=== PATIENT | female | born 1940 | race Caucasian/White ===

== ENCOUNTER 2017-09-13 11:20 | Emergency (ER) | payer OTHER, BC ==
[~2017-09-13] VITALS: Ht 172.7 cm; Wt 72.6 kg
--- NOTE | ~2017-09-13 | EKG ---
[place] [address] [facility] [place] [address] ELECTROCARDIOGRAM REPORT Name: AMRITA GORMANJORIBubba BEARD Room #: DEP 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
[~2017-09-13 11:20] MED LIST: AMBEREN PO; COD LIVER OIL; COQ-10100 MG PO; LEVAQUIN 500 M500 M4 PO; LIALDA1.2 GM PO; MULTI VITAMIN1 EACH PO; NEXIUM40 MG PO; NORCO 5-325 TA1 EACH PO; PAIN & FEVER500 MG PO; PENTASA 250 MG250 MG PO; PERCOCET 5-3251 EACH PO; PREDNISONE 5 MG5 M1 PO; VITAMIN E; VITAMIN E400 UNIT PO; ZINC GLUCONATE PO; ZINC10 MG; ZOFRAN ODT4 MG PO
[2017-09-13 12:11] LABS: HEMATOCRIT 33.2 % (37.0-47.0); HEMOGLOBIN 10.8 gm/dL (12.0-15.0); MCH 24.7 pg (26.0-34.0); MCHC 32.6 g/dL (28.0-37.0); MCV 75.6 fL (80.0-100.0); PLATELET COUNT 281 thou/uL (150-400); RDW 16.8 % (10.5-14.5); WBC 7.2 thou/uL (4.0-11.0)
[2017-09-13 12:22] LABS: ANION GAP 4 mmol/L (7-16); BUN 10 mg/dL (7-18); CALCIUM 8.6 mg/dL (8.5-10.1); CHLORIDE 105 mmol/L (98-107); CO2 29 mmol/L (21-32); CREATININE 0.9 mg/dL (0.6-1.0); GLUCOSE 114 mg/dL (74-106); SODIUM 138 mmol/L (136-145)
[2017-09-13 12:31] LABS: ALBUMIN 3.5 g/dL (3.4-5.0); SGOT 12 U/L (15-37); SGPT 18 U/L (30-65); TOTAL BILIRUBIN 0.6 mg/dL (<0.1-1.0); TOTAL PROTEIN 7.6 g/dL (6.4-8.2); TROPONIN-I <0.06 ng/mL (<0.06)
[2017-09-13 12:39] LABS: ANISOCYTOSIS 1+
[2017-09-13 14:04] LABS: URINE BILIRUBIN NEGATIVE (Negative); URINE BLOOD NEGATIVE (Negative); URINE CLARITY CLEAR; URINE COLOR YELLOW; URINE GLUCOSE-RANDOM* NEGATIVE (Negative); URINE KETONES NEGATIVE (Negative); URINE LEUKOCYTES-REFLEX NEGATIVE (Negative); URINE NITRITE-REFLEX NEGATIVE (Negative); URINE PROTEIN (DIPSTICK) NEGATIVE (Negative); URINE SPECIFIC GRAVITY <= 1.005 (1.005-1.035); URINE UROBILINOGEN 0.2 E.U./dl (0.2-1.0)
[2017-09-13] MEDS ORDERED: LIORESAL 10 MG10 MG PO (14:24)
== END 2017-09-13 15:10 | disposition home or self-care (01) ==
LOC: ER 11:20
PROVIDERS: Physician Assistant
DX: S29.012A Strain of muscle and tendon of back wall of thorax, initial encounter (principal); Z87.442 Personal history of urinary calculi; Z88.2 Allergy status to sulfonamides; X58.XXXA Exposure to other specified factors, initial encounter; Y92.89 Other specified places as the place of occurrence of the external cause; Y93.89 Activity, other specified; Y99.8 Other external cause status

== ENCOUNTER → 2017-10-06 | Outpatient (CLI) | payer OTHER, BC ==
[~2017-10-06] VITALS: Ht 172.7 cm; Wt 72.1 kg
[~2017-10-06] MED LIST changes: +LIORESAL 10 MG10 MG PO; +LISINOPRIL5 MG PO; +OMEPRAZOLE 20 M20 M1 PO; +ZOCOR20 MG PO
[2017-10-06 14:23] VITALS: BP 144/91
[2017-10-06 16:20] LABS: ABSOLUTE NEUTROPHILS 7.8 thou/uL (1.4-8.2); BASOPHILS 0.6 % (0.0-2.0); EOSINOPHILS 0.3 % (0.0-3.0); HEMATOCRIT 34.6 % (37.0-47.0); HEMOGLOBIN 11.1 gm/dL (12.0-15.0); LYMPHOCYTES 7.9 % (24.0-44.0); MCH 24.1 pg (26.0-34.0); MCHC 32.2 g/dL (28.0-37.0); MCV 74.8 fL (80.0-100.0); MONOCYTES 5.9 % (1.0-8.0); PLATELET COUNT 285 thou/uL (150-400); POLYS 85.3 % (36.0-66.0); RBC 4.63 mil/uL (4.20-5.00); RDW 16.9 % (10.5-14.5); WBC 9.2 thou/uL (4.0-11.0)
[2017-10-06 16:35] LABS: ALBUMIN 3.9 g/dL (3.4-5.0); ANION GAP 8 mmol/L (7-16); BUN 15 mg/dL (7-18); CALCIUM 8.8 mg/dL (8.5-10.1); CHLORIDE 106 mmol/L (98-107); CHOLESTEROL 221 mg/dL (<200); CO2 24 mmol/L (21-32); CREATININE 0.9 mg/dL (0.6-1.0); GLUCOSE 111 mg/dL (74-106); HDL CHOLESTEROL 42 mg/dL (>40); LDL CHOLESTEROL 118 mg/dL (<100); MAGNESIUM 2.3 mg/dL (1.8-2.4); POTASSIUM 4.7 mmol/L (3.5-5.1); SGOT 13 U/L (15-37); SGPT 21 U/L (30-65); SODIUM 138 mmol/L (136-145); TC:HDL 5.3 Ratio (Not establshd); TOTAL BILIRUBIN 0.5 mg/dL (<0.1-1.0); TOTAL PROTEIN 7.8 g/dL (6.4-8.2); TRIGLYCERIDE 305 mg/dL (<150); VLDL 61 mg/dL (<40)
[2017-10-06 16:36] LABS: SERUM ASSESSMENT Clear
[2017-10-06 17:05] LABS: TSH 1.126 uIU/mL (0.358-3.740)
[2017-10-07 04:07] LABS: GLYCOHEMOGLOBIN (HGB A1C) 5.6 % (4.8-5.6)
== END ==
LOC: SEN 14:03
PROVIDERS: Nurse Practitioner Family
DX: Z09 Encounter for follow-up examination after completed treatment for conditions other than malignant neoplasm (principal); K51.90 Ulcerative colitis, unspecified, without complications; K21.9 Gastro-esophageal reflux disease without esophagitis; H91.92 Unspecified hearing loss, left ear; R79.89 Other specified abnormal findings of blood chemistry; I10 Essential (primary) hypertension; D50.9 Iron deficiency anemia, unspecified; E78.5 Hyperlipidemia, unspecified

== ENCOUNTER → 2017-11-19 | Outpatient (CLI) | payer OTHER, BC ==
[2017-11-19 13:52] VITALS: BP 141/87
== END ==
LOC: SEN 08:12
DX: Z09 Encounter for follow-up examination after completed treatment for conditions other than malignant neoplasm (principal); M79.89 Other specified soft tissue disorders

== ENCOUNTER → 2017-12-21 | Outpatient (CLI) | payer OTHER, BC ==
[~2017-12-21] MED LIST changes: +VOLTAREN GEL 1100 G2 TOP
[2017-12-21 15:20] VITALS: BP 126/74
== END ==
LOC: SEN 12-17 14:54
DX: M54.6 Pain in thoracic spine (principal); K51.90 Ulcerative colitis, unspecified, without complications; Z79.899 Other long term (current) drug therapy

== ENCOUNTER 2018-07-20 16:05 | Emergency (ER) | payer OTHER, BC ==
[~2018-07-20] VITALS: Ht 172.7 cm; Wt 72.6 kg
[2018-07-20 16:23] LABS: HEMATOCRIT 28.1 % (37.0-47.0); HEMOGLOBIN 8.6 gm/dL (12.0-15.0); MCH 19.4 pg (26.0-34.0); MCHC 30.6 g/dL (28.0-37.0); MCV 63.6 fL (80.0-100.0); PLATELET COUNT 388 thou/uL (150-400); RBC 4.42 mil/uL (4.20-5.00); RDW 19.2 % (10.5-14.5); WBC 12.2 thou/uL (4.0-11.0)
[2018-07-20 16:30] LABS: ANION GAP 10 mmol/L (7-16); BUN 19 mg/dL (7-18); CALCIUM 8.4 mg/dL (8.5-10.1); CHLORIDE 106 mmol/L (98-107); CO2 25 mmol/L (21-32); CREATININE 1.1 mg/dL (0.6-1.0); GLUCOSE 181 mg/dL (74-106); POTASSIUM 3.7 mmol/L (3.5-5.1); SODIUM 141 mmol/L (136-145)
[2018-07-20 16:39] LABS: TROPONIN-I <0.06 ng/mL (<0.06)
[2018-07-20 16:49] LABS: ABSOLUTE NEUTROPHILS 10.4 thou/uL (1.4-8.2); ATYPICAL LYMPHS 1 %; MICROCYTES 2+
[2018-07-20 16:50] LABS: ANISOCYTOSIS 2+; HYPOCHROMASIA 1+
[2018-07-20 16:51] LABS: OVALOCYTES FEW; POLYCHROMASIA OCCASIONAL; SCHISTOCYTES RARE
[2018-07-20 18:12] VITALS: BP 123/85
--- NOTE | 2018-07-21 16:09 | EKG ---
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 : 1940 Requested By: Chidi Garza Order Number: [id number] MD: Kyle Ramírez Measurements Intervals [place] Rate: 78 P: ID: QRS: 14 QRSD: 80 T: 74 QT: 382 QTc: 436 Interpretive Statements Sinus rhythm, multiple APCs Nonspecific ST segment abnormalities Compared to ECG 09/13/2017 11:26:02 No significant change Electronically Signed On 07-21-2018 16:09:48 CDT by Kyle Ramírez [email or web address] ��������������������������������������������� <ELECTRONICALLY SIGNED> ���������������������������������������� By: Kyle Ramírez MD ��������������������������������������������� 07/21/18 1609 1622 1622 Kyle Ramírez MD /FADI
== END 2018-07-20 18:12 | disposition home or self-care (01) ==
LOC: ER 16:05
PROVIDERS: Emergency Medicine
DX: I48.91 Unspecified atrial fibrillation (principal); R55 Syncope and collapse; Z88.2 Allergy status to sulfonamides; Z87.442 Personal history of urinary calculi

== ENCOUNTER → 2019-09-05 | Outpatient (CLI) | payer OTHER, BC | LOC: SJCVC 13:05 | PROVIDERS: ATTEND Internal Medicine | DX: I48.0 Paroxysmal atrial fibrillation (principal); E78.5 Hyperlipidemia, unspecified; D50.0 Iron deficiency anemia secondary to blood loss (chronic); Z79.899 Other long term (current) drug therapy ==

== ENCOUNTER → 2020-02-01 | Outpatient (CLI) | payer OTHER, BC ==
[~2020-02-01] MED LIST changes: +ELIQUIS5 MG PO; +TOPROL XL25 MG PO
[2020-02-01 13:10] VITALS: BP 144/80
[2020-02-01 14:45] VITALS: BP 155/86
--- NOTE | 2020-02-01 16:19 | NUR ---
IN FOR 1ST OF 5 VENOFER INFUSIONS FOR IRON DEFICIENCY ANEMIA. STATED FEELING TIRED ALOT AND CANNOT TOLERATE ORAL IRON. IV PLACED IN LA AND INFUSED VENOFER OVER 1 HOUR. TOLERATED WELL. POST BP STABLE. TO RETURN NEXT WEDNESDAY FOR 2ND INFUSION. DISMISSED AMBULATORY IN GOOD CONDITION.
== END ==
LOC: OPONC 12:33
PROVIDERS: ATTEND Family Medicine
DX: D50.8 Other iron deficiency anemias (principal)
CPT/HCPCS: 95000

== ENCOUNTER → 2020-02-06 | Outpatient (CLI) | payer OTHER, BC ==
[2020-02-06 14:30] VITALS: BP 133/80
[2020-02-06 15:20] VITALS: BP 142/77
--- NOTE | 2020-02-06 15:50 | NUR ---
IN FOR 2ND OF 5 VENOFER INFUSIONS FOR IRON DEFICIENCY ANEMIA. PATIENT STATED HER ULCERATIVE COLITIS FLARED AFTER LAST WEEK'S DOSE WITH EXPLOSIVE DIARRHEA. STATED STOOL GEL LIKE WITH SOME SOLID IN IT. STATED SHE WANTED TO GO AHEAD WITH TODAY'S INFUSION BECAUSE THE FLARE WAS SOMETHING SHE CAN TOLERATED SO SHE CAN GET ALL OF HER IRON INFUSIONS. IV PLACED IN LAC AND INFUSED VENOFER OVER 30 MINUTES. TOLERATED WELL. POST VITAL SIGNS GOOD. REMOVED IV AND DISMISSED IN STABLE CONDITION. TO RETURN ON WEDNESDAY FOR 3RD INFUSION.
== END ==
LOC: OPONC 08:33
PROVIDERS: ATTEND Family Medicine
DX: D50.8 Other iron deficiency anemias (principal); K51.00 Ulcerative (chronic) pancolitis without complications
CPT/HCPCS: 95000

== ENCOUNTER → 2020-02-09 | Outpatient (CLI) | payer OTHER, BC ==
--- NOTE | 2020-02-09 16:17 | NUR ---
IN FOR #3 OF 5 VENOFER INFUSIONS FOR IRON DEFICIENCY ANEMIA. STATED FEELING WELL. MAIN COMPLAINT IS DIARRHEA RELATED TO HER ULCERATIVE COLITIS. PATIENT STATED IF SHE TAKES ANY KIND OF DIFFERENT MEDICATION IT CAUSES HER ULCERATIVE COLITIS TO FLARE, HOWEVER IT IS NOT BAD ENOUGH TO STOP TAKING THE VENOFER. IV PLACED IN RAC AND INFUSED VENOFER OVER 30 MINUTES. TOLERATED WELL. POST BP GOOD. OBSERVED FOR 20 MINUTES AND THEN DISMISSED IN STABLE CONDITION. TO RETURN NEXT WEDNESDAY FOR THE 4TH INFUSION.
== END ==
LOC: OPONC 09:28
PROVIDERS: ATTEND Family Medicine
DX: D50.8 Other iron deficiency anemias (principal); K51.00 Ulcerative (chronic) pancolitis without complications
CPT/HCPCS: 95000

== ENCOUNTER → 2020-02-13 | Outpatient (CLI) | payer OTHER, BC ==
[2020-02-13 13:05] VITALS: BP 117/76
[2020-02-13 13:35] VITALS: BP 125/68
--- NOTE | 2020-02-13 15:08 | NUR ---
IN FOR 4TH OF 5 VENOFER INFUSIONS FOR IRON DEFICIENCY ANEMIA. PATIENT STATED FEELING WELL. STILL HAVING SOME DIARRHEA BUT IS TOLERABLE. IV PLACED AND INFUSED VENOFER OVER 30 MINUTES. TOLERATED WELL. POST BP GOOD. REMOVED IV AND DISMISSED IN GOOD CONDITION.
== END ==
LOC: OPONC 10:53
PROVIDERS: ATTEND Family Medicine
DX: D50.8 Other iron deficiency anemias (principal); K51.00 Ulcerative (chronic) pancolitis without complications
CPT/HCPCS: 95000

== ENCOUNTER → 2020-02-16 | Outpatient (CLI) | payer OTHER, BC ==
[2020-02-16 11:05] VITALS: BP 129/80
[2020-02-16 12:10] VITALS: BP 145/87
== END ==
LOC: OPONC 10:59
PROVIDERS: ATTEND Family Medicine
DX: D50.8 Other iron deficiency anemias (principal); K51.00 Ulcerative (chronic) pancolitis without complications
CPT/HCPCS: 95000

== ENCOUNTER 2020-02-25 11:04 | Emergency (ER) | payer OTHER, BC ==
[~2020-02-25] VITALS: Ht 172.7 cm; Wt 68.0 kg
[2020-02-25 11:50] LABS: HEMATOCRIT 38.1 % (37.0-47.0); HEMOGLOBIN 11.8 gm/dL (12.0-15.0); MCH 24.7 pg (26.0-34.0); MCHC 30.9 g/dL (28.0-37.0); MCV 79.8 fL (80.0-100.0); PLATELET COUNT 226 thou/uL (150-400); RBC 4.77 mil/uL (4.20-5.00); RDW 24.7 % (10.5-14.5); WBC 11.1 thou/uL (4.0-11.0)
[2020-02-25 11:57] LABS: APTT 22.3 Seconds (24.5-32.8); PROTIME 10.6 Seconds (9.3-11.4)
[2020-02-25 12:09] LABS: CALCIUM 8.6 mg/dL (8.5-10.1); POTASSIUM 3.9 mmol/L (3.5-5.1)
[2020-02-25 12:15] LABS: ALBUMIN 3.4 g/dL (3.4-5.0); TOTAL BILIRUBIN 0.4 mg/dL (0.2-1.0); TOTAL PROTEIN 6.7 g/dL (6.4-8.2)
[2020-02-25] MEDS ORDERED: VALIUM5 MG PO (13:23)
[2020-02-25 13:37] VITALS: BP 115/70
[2020-02-25 13:38] LABS: ABSOLUTE NEUTROPHILS 8.3 thou/uL (1.4-8.2); METAMYELOCYTES 1 %
[2020-02-25 13:39] LABS: ANISOCYTOSIS 2+
== END 2020-02-25 13:45 | disposition home or self-care (01) ==
LOC: ER 11:04
PROVIDERS: Physician Assistant
DX: S39.012A Strain of muscle, fascia and tendon of lower back, initial encounter (principal); S70.01XA Contusion of right hip, initial encounter; S00.93XA Contusion of unspecified part of head, initial encounter; R11.0 Nausea; R50.9 Fever, unspecified; Z87.442 Personal history of urinary calculi; I48.91 Unspecified atrial fibrillation; Z79.899 Other long term (current) drug therapy; Z88.2 Allergy status to sulfonamides; W01.198A Fall on same level from slipping, tripping and stumbling with subsequent striking against other object, initial encounter; Y93.89 Activity, other specified; Y92.89 Other specified places as the place of occurrence of the external cause; Y99.8 Other external cause status

== ENCOUNTER 2020-02-27 02:42 | Inpatient (IN) | payer OTHER, BC ==
[~2020-02-27] VITALS: Ht 172.7 cm; Wt 73.5 kg
--- NOTE | ~2020-02-27 | EMS ---
[facility] [address] [place] [address] EMS Patient Care Report Name: SANDRA GORMAN Room #: 170-10 ADM IN M.R.#: [id number] Admission: 02/27/20 Attend Phys: Azeem Malagon MD Discharge: Date of : 44 Report #: [id number] THIS REPORT FOR: //name// Report Transmitted: 02/27/2020 06:59 EMS Care Summary [facility] MED-ACT Incident [id number] @ 02/27/2020 02:13 Incident Location [address] [place] [address] Patient SANDRA GORMAN Female, 79 Years 1940 Patient Address [address] [place] [address] Chief Complaint PAIN Disposition Transported No Lights/[place] Reason Falls Transported To [facility] Narrative [id number] arrived on scene and was meet by first responders and the patietn walking towards EMS. Patient advised that she had a fall yesterday and went to [facility] where they did x-rays and ct scans and she was told that she had no fractures and was discharged. Tonight she has pain in her back, abdomen and right hip still and described the pain as an aching muscle pain which she had yesterday but is worse now and wants to be taken back to [facility] so they can reevaluate her. The cot was brought to the patient and patient was able to transfer to the cot without any incident. She had no other complaints throughout EMS care and advised that she actually felt better than she has all day after laying down on the cot. Patient signed report and handoff report given to RN. [email or web address] [facility] [address] [place] [address] EMS Patient Care Report Name: SANDRA GORMAN Room #: 170-10 ADM IN M.R.#: [id number] Admission: 02/27/20 Attend Phys: Azeem Malagon MD Discharge: Date of : 44 Report #: [id number] *only one set of vitals able to be obtained dur to very short transport time.* Initial Vitals @02:30P: 87,R: 18,BP: 174/100,Pain: 4/10,GCS: 15,Temp: 98F,SpO2: 98,Revised Trauma: 12, Assessments @02:26MENTAL:Person Oriented,Time Oriented,Place Oriented,Event Oriented,SKIN:No Abnormalities,HEENT:Head/Face: No Abnormalities,Eyes: No Abnormalities,Neck/Airway: No Abnormalities,LUNG SOUNDS:General: Other,Left Upper: No Abnormalities,Right Upper: No Abnormalities,Left Lower: No Abnormalities,Right Lower: No Abnormalities,ABDOMEN:General: Other,Left Upper: No Abnormalities,Right Upper: No Abnormalities,Left Lower: No Abnormalities,Right Lower: No Abnormalities,PELVIS//GI:No Abnormalities,EXTREMITIES:Right Leg: Other,Left Arm: No Abnormalities,Right Arm: No Abnormalities,Left Leg: No Abnormalities,PULSE:NEURO:No Abnormalities, Impression Pain (Non-Traumatic) Procedures @PTASurgical Mask on PatientResponse: Unchanged 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 It is designed to provide pertinent information for the following purposes: continuity of care, clinical quality, and state data reporting. The complete legal record is available to ED staff and administrators of the receiving hospital in [facility]'s Patient Tracker. All data [address] [address] EMS Patient Care Report Name: SANDRA GORMAN Room #: 170-10 ADM IN M.R.#: [id number] Admission: 02/27/20 Attend Phys: Azeem Malagon MD Discharge: Date of : 44 Report #: [id number] is provided "as is."
[~2020-02-27 02:42] MED LIST changes: +VALIUM5 MG PO
[2020-02-27 02:43] VITALS: BP 143/78
[2020-02-27 03:21] LABS: ABSOLUTE NEUTROPHILS 5.9 thou/uL (1.4-8.2); BASOPHILS 0.6 % (0.0-2.0); EOSINOPHILS 0.9 % (0.0-3.0); HEMATOCRIT 36.1 % (37.0-47.0); HEMOGLOBIN 11.3 gm/dL (12.0-15.0); LYMPHOCYTES 8.5 % (24.0-44.0); MCH 25.1 pg (26.0-34.0); MCHC 31.4 g/dL (28.0-37.0); MCV 79.9 fL (80.0-100.0); PLATELET COUNT 214 thou/uL (150-400); RBC 4.52 mil/uL (4.20-5.00); RDW 24.5 % (10.5-14.5); WBC 7.7 thou/uL (4.0-11.0)
[2020-02-27 03:25] LABS: CALCIUM 8.7 mg/dL (8.5-10.1); CREATININE 0.9 mg/dL (0.6-1.0); POTASSIUM 3.9 mmol/L (3.5-5.1)
[2020-02-27 03:31] LABS: ALBUMIN 3.6 g/dL (3.4-5.0); TOTAL BILIRUBIN 0.6 mg/dL (0.2-1.0)
[2020-02-27 04:04] LABS: URINE BILIRUBIN NEGATIVE (Negative); URINE BLOOD 2+ (Negative); URINE CLARITY CLEAR; URINE COLOR YELLOW; URINE GLUCOSE-RANDOM* NEGATIVE (Negative); URINE KETONES TRACE (Negative); URINE LEUKOCYTES-REFLEX TRACE (Negative); URINE NITRITE-REFLEX NEGATIVE (Negative); URINE PROTEIN (DIPSTICK) NEGATIVE (Negative); URINE SPECIFIC GRAVITY >= 1.030 (1.005-1.035); URINE UROBILINOGEN 0.2 E.U./dl (0.2-1.0)
[2020-02-27 04:21] LABS: BACTERIA-REFLEX 1-9 Few /HPF (None Seen); CASTS None Seen /LPF (None Seen); CRYSTALS None Seen /LPF (None Seen); MUCUS 4-6 Moderate strn/LPF (None Seen); SQUAMOUS 4-10 Moderate /LPF (0-3); URINE WBC-REFLEX 0-5 Rare /HPF (0-5)
[2020-02-27 07:21] VITALS: BP 134/71
[2020-02-27 08:15] VITALS: BP 112/71
--- NOTE | 2020-02-27 16:24 | NUR ---
ASSESSMENT: CM REVIEWED CHART AND SPOKE WITH PT. PT REPORTS LIVING IN A HOUSE BY HERSELF. PT REPORTS A COUPLE OF STEPS TO ENTER AND REPORTS LIVING IN A SPLIT LEVEL HOME WITH ABOUT 7 STEPS WITH HANDRAILS ON EACH LEVEL. PT REPORTS BEING FULLY INDEPENDENT WITH ADLS AND AMBULATION. 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 PT REPORTS TAHT SHE HAS FRIENDS THAT CAN HELP ASSIST HER IF NEEDED. PT REPORTS NO HX OF HH. CM WILL CONTINUE TO FOLLOW. PT IS TO HAVE MRI.
[2020-02-27 16:26] LABS: PROTIME 10.1 Seconds (9.3-11.4)
[2020-02-27 17:05] VITALS: BP 121/60
--- NOTE | 2020-02-27 18:30 | NUR ---
PT RECEIVED FROM THE ER AT 0830 ALERT AND IN NO ACUTE DISTRESS. PT ASSESSED AND ORIENTED TO UNIT. NPO FOR SEVERAL HOURS AND HAD MRI WHICH SHOWED T10 COMPRESSION FRACTURE. DR. JAMISON CONSULTED TO DO KYPHOPLASTY POSSLBLY WEDNESDAY. TAKING NORCO FOR HER BACK PAIN W/ GOOD RELIEF. RT HIP/THIGH W/ LARGE HEMATOMA FROM FALL AT HOME YESTERDAY. GOOD CIRC/SENSATION TO FOOT.
[2020-02-27 21:00] VITALS: BP 111/71
--- NOTE | 2020-02-28 06:27 | NUR ---
ASSUMED PT CARE AT 1900.PT C/O PAIN TO HER HIP,MANAGED WITH MED.HEMATOMA AND BRUISING NOTED TO HER R HIP.PT CONTINENT OF B&B.PT RESTING ON HER BED AT THIS TIME.CALL LIGHT WITHIN REACH.
[2020-02-28 08:41] VITALS: BP 99/60
--- NOTE | 2020-02-28 13:55 | NUR ---
ON-GOING ASSESSMENT: CM REVIEWED CHART AND SPOKE WITH PT. PT HAS A COMPRESSION FX AND IS TO GET KYPHOPLASTY TOMORROW DUE TO HAVING TO BE OFF ELEQUIS AND LAST DOSE WAS WEDNESDAY PER NOTES. PLANS FOR KYPHO TOMORROW. CM WILL CONTINUE TO FOLLOW TO ASSIST NEEDED.
[2020-02-28 17:42] VITALS: BP 97/51
--- NOTE | 2020-02-28 18:27 | NUR ---
Assumed care of pt at 0700. Pt a&ox4. Pain controlled with prn pain meds. Large bruise on right thigh. Pt will undergo kyphoplasty in the am (02/28). NPO after midnight. SBA to bedside commode. Fall precautions in place. Call light within reach. Will continue to monitor.
[2020-02-28 20:31] VITALS: BP 109/60
--- NOTE | 2020-02-29 04:33 | NUR ---
ASSUMED CARE OF PT AT 1900. PT IS A/O X4 AND IS UP WITH ASSIST X1 TO BSC. PT C/O BACK PAIN. PRN PAIN MEDICATION GIVEN DIRECTED. PT STATES THE BRUISING TO RIGHT LEG IS "FEELING MUCH BETTER THAN IT WAS". PT NPO SINCE MIDNIGHT AWAITING PROCEDURE. FALL PRECATIONS ARE IN PLACE, CALL LIGHT IS WITHIN REACH. WILL CONTINUE TO MONITOR.
[2020-02-29 08:07] VITALS: BP 106/61
[2020-02-29] MEDS ORDERED: PERCOCET PO (08:53)
--- NOTE | 2020-02-29 11:19 | NUR ---
ON-GOING ASSESSMENT: CM REVIEWED CHART. PT HAD KYPHOPLASTY TODAY. 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 PT DECLINES THE NEED FOR HH. PT IS POSSIBLE DISCHARGE LATER TODAY.
--- NOTE | 2020-02-29 15:24 | NUR ---
ON-GOING ASSESSMENT: PT RETURNED FROM KYPHO BUT REPORTS STILL HAVING SOME PAIN. PT WILL REMAIN IN HOUSE OVERNIGHT AND CONTINUE TO WORK WITH THERAPY. Nasir HAS BEEN CONSULTED TO SEE PATIENT AND WAITING ON EVAL HOWEVER PT LIKELY PLANS TO RETURN HOME WITH HOME HEALTH. PT HAS NO PREFERENCE OF COMPANY. CM FAXED REFERRAL TO [facility]. AWAITING INPUT FROM Nasir BUT LIKELY DISCHARGE HOME WITH [facility]. IF PATIENT IS ABLE TO LEAVE WITH HOME HEALTH FAX DISCHARGE ORDERS TO [facility]/NINI :[phone].
[2020-02-29 15:26] VITALS: BP 106/61
[2020-02-29 16:55] VITALS: BP 104/73
[2020-02-29 19:41] VITALS: BP 105/75
--- NOTE | 2020-03-01 03:04 | NUR ---
ASSUMED CARE OF PT AT 1900. PT IS A/O X4 AND IS PLEASANT AND COOPERATIVE. UP WITH ASSISTANCE TO THE BR WITH A GB AND WALKER. PT C/O SPASMS IN LOWER BACK THAT RADIATES TO CENTER OF ABDOMEN. PRN MEDICATION FOR SPASMS AND PAIN GIVEN DIRECTED. AT THIS TIME PT IS LYING IN HER BED AND APPEARS TO BE SLEEPING WILL CONTINUE TO MONITOR.
[2020-03-01 08:10] VITALS: BP 115/79
[2020-03-01 16:45] VITALS: BP 115/63
[2020-03-01 19:08] VITALS: BP 110/70
--- NOTE | 2020-03-01 19:53 | NUR ---
PT ASSESSED AT START OF SHIFT. STILL HAVING SOME BACK PAIN BUT DOING MUCH BETTER W/ PAIN MED. AMBULATES WELL W/ WALKER. EATING AND DRINKING. MOM AND MIRALAX GIVEN FOR CONSTIPATION. NO BM YET. PLAN FOR DISCHARGE TOMORROW TO FRIENDS HOUSE TO HELP HER.
[2020-03-02 03:44] VITALS: BP 117/82
--- NOTE | 2020-03-02 05:24 | NUR ---
ASSUMED PT CARE FROM LUPIS (DAY RN). PT IS ALERT AND ORIENTED X 4. PT HAS COMPLAINTS OF BACK PAIN AT A 5. PT TOLERATES ORAL PAIN MEDICATION. DRESSING C/D/I. PT CALLS OUT APPROPRIATELY TO MAKE NEEDS KNOWN.PT IS CONCERNED ABOUT HER DOG THAT GOT OUT IN HER NEIGHBORHOOD. WILL CONTINUE TO MONITOR.
[2020-03-02 08:18] VITALS: BP 107/69
[2020-03-02 15:58] VITALS: BP 99/57
--- NOTE | 2020-03-02 17:11 | NUR ---
PT HAS WORKED WITH THERAPY UP TO BEDSIDE CHAIR WAS TO DC TODAY BUT STATES DOES NOT FEEL WELL DR QUIROZ CALLED STATES MAY STAY OVERNIGHT DC IN AM. WAS GIVEN PRN PAIN MED FOR BACK PAIN. CONT OF B&B.
[2020-03-02 20:34] VITALS: BP 114/69
--- NOTE | 2020-03-03 06:05 | NUR ---
ASSESSED AT START OF SHIFT. PT A&OX4. SITTING UP IN RECLINER. UP WITH SBA WITH A WALKER TO THE BATHROOM. OXYCODONE GIVEN X1 FOR PAIN. PT STATES FELLING MUCH BETTER TODAY AND ANTICIPATING DISCHARGE TOMORROW. FALL PREC IN PLACE AND CALL LIGHT AT REACH WILL CONT WITH POC TILL EOS.
[2020-03-03 07:55] VITALS: BP 132/83
[2020-03-03 11:02] VITALS: BP 106/61
[2020-03-03 12:20] VITALS: BP 106/61
--- NOTE | 2020-03-03 12:21 | NUR ---
DISCHARGE PAPERS REVIEWED WITH PATIENT SIGNED AND COPY IN CHART. IV ACSESS DCD. ALL BELONGINGS PACKED INCLUDING WALKER THAT WAS DELIEVERED. COUNT INCLUDES THE [facility] TO CONTACT PATIENT TO SET UP VISITS, NUMBER WAS ALSO GIVEN TO PATIENT ON HER DISCHARGE PAPERS.
--- NOTE | 2020-03-03 17:07 | NUR ---
[facility] CALLED ABOUT PATIENT WE FAXED PAPERS THAT THEY WANTED AND NEEDED. [facility] [address] [facility] [facility] [address] INFO GAVE TO HOME HEALTH NURSE
== END 2020-03-03 12:28 | disposition home health service (06) | DRG 516 ==
LOC: ER 02:42 → EROBS 06:02 → 4S 06:02
PROVIDERS: Emergency Medicine; ADMIT Family Medicine; ATTEND Family Medicine
PROC: 0PU43JZ Supplement Thoracic Vertebra with Synthetic Substitute, Percutaneous Approach (ICD-10-PCS; principal; 2020-02-29)
PROC: 0PS43ZZ Reposition Thoracic Vertebra, Percutaneous Approach (ICD-10-PCS; principal; 2020-02-29)
DX: S22.078A Other fracture of T9-T10 vertebra, initial encounter for closed fracture (principal); K51.90 Ulcerative colitis, unspecified, without complications; S70.11XA Contusion of right thigh, initial encounter; S09.8XXA Other specified injuries of head, initial encounter; D64.9 Anemia, unspecified; K59.00 Constipation, unspecified; I48.91 Unspecified atrial fibrillation; W18.39XA Other fall on same level, initial encounter; Z79.01 Long term (current) use of anticoagulants; Z79.899 Other long term (current) drug therapy; Z88.2 Allergy status to sulfonamides; Y93.89 Activity, other specified; Y92.89 Other specified places as the place of occurrence of the external cause; Y99.8 Other external cause status
CPT/HCPCS: 10195

== ENCOUNTER → 2020-04-16 | Outpatient (CLI) | payer OTHER, BC ==
[~2020-04-16] MED LIST changes: +PERCOCET PO
== END ==
LOC: SJCVC 09:26
PROVIDERS: ATTEND Nuclear Medicine Nuclear Cardiology
DX: M80.08XG Age-related osteoporosis with current pathological fracture, vertebra(e), subsequent encounter for fracture with delayed healing (principal); M54.9 Dorsalgia, unspecified; I48.0 Paroxysmal atrial fibrillation; Z72.89 Other problems related to lifestyle; Z88.2 Allergy status to sulfonamides; Z79.899 Other long term (current) drug therapy; Z98.890 Other specified postprocedural states

== ENCOUNTER 2020-07-21 18:53 | Emergency (ER) | payer OTHER, BC ==
[~2020-07-21] VITALS: Ht 170.2 cm; Wt 73.9 kg
--- NOTE | ~2020-07-21 | EMS ---
[address] [address] EMS Patient Care Report Name: SANDRA GORMAN Room #: REG BRANDO Win#: [id number] Admission: 07/21/20 Attend Phys: Discharge: Date of : 44 Report #: [id number] THIS REPORT FOR: //name// Report Transmitted: 07/21/2020 20:00 EMS Care Summary [facility] MED-ACT Incident [id number] @ 07/21/2020 18:19 Incident Location [address] [place] [address] Patient SANDRA HYDE Female, 80 Years 1940 Patient Address [address] [place] [address] Patient History Atrial Fibrillation, Patient Allergies No known allergies, Patient Medications Metoprolol, Eliquis, Chief Complaint R shoulder pain and N&V Disposition Transported No Lights/[place]patch Reason Falls Transported To [facility] Narrative Upon arrival pt was sitting on a chair at [facility], presented w/o distress. Pt stated she was at the front yard and then tried to get into the house but she had a generalized weakness. Pt sat on the ground and crowed to the garage. Pt stated she could not get into the garage, but a neighbor saw her and called [address] [address] EMS Patient Care Report Name: SANDRA GORMAN Room #: REG BRANDO Win#: [id number] Admission: 07/21/20 Attend Phys: Discharge: Date of : 44 Report #: [id number] 911. Pt denied fall. Pt stated she had R shoulder pain. Pt denied any head pain, neck or back. Pt was on blood thinners. Pt was negative on stroke scale. Pt stated she has hx of A/fib. Pt stood and sat on the stretcher w/o difficulty and then pt moved to the unit. In the unit, pt vitals were monitored ad remained stable during transport. At the hospital, pt moved to bed 10 by sheet lift and then pt care turned over ED nurse. Initial Vitals @PTAP: 105,R: 18,BP: 169/111,SpO2: 98, @18:46P: 90,R: 18,BP: 183/115,Pain: 2/10,GCS: 15,Temp: 97.5F,SpO2: 98,Revised Trauma: 12, Assessments @18:48MENTAL:No Abnormalities,SKIN:No Abnormalities,HEENT:Head/Face: No Abnormalities,Eyes: No Abnormalities,Neck/Airway: No Abnormalities,LUNG SOUNDS:General: No Abnormalities,Left Upper: No Abnormalities,Right Upper: No Abnormalities,Left Lower: No Abnormalities,Right Lower: No Abnormalities,ABDOMEN:General: No Abnormalities,Left Upper: No Abnormalities,Right Upper: No Abnormalities,Left Lower: No Abnormalities,Right Lower: No Abnormalities,PELVIS//GI:No Abnormalities,EXTREMITIES:Right Arm: VIKKI,Left Arm: No Abnormalities,Left Leg: No Abnormalities,Right Leg: No Abnormalities,PULSE:NEURO:No Abnormalities, Impression 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 It is designed to provide pertinent information for the following purposes: continuity of care, clinical quality, [address] [address] EMS Patient Care Report Name: SANDRA GORMAN Room #: REG ER Quirino#: [id number] Admission: 07/21/20 Attend Phys: Discharge: Date of : 44 Report #: [id number] and state data reporting. The complete legal record is available to ED staff and administrators of the receiving hospital in [employer]'s Patient Tracker. All data is provided "as is."
[2020-07-21 19:41] LABS: ABSOLUTE NEUTROPHILS 15.7 thou/uL (1.4-8.2); BASOPHILS 0.1 % (0.0-2.0); HEMATOCRIT 43.1 % (37.0-47.0); HEMOGLOBIN 14.2 gm/dL (12.0-15.0); LYMPHOCYTES 2.1 % (24.0-44.0); MCH 28.4 pg (26.0-34.0); MCHC 32.9 g/dL (28.0-37.0); MCV 86.4 fL (80.0-100.0); MONOCYTES 9.4 % (1.0-8.0); PLATELET COUNT 260 thou/uL (150-400); POLYS 88.4 % (36.0-66.0); RBC 4.99 mil/uL (4.20-5.00); RDW 15.1 % (10.5-14.5); WBC 17.8 thou/uL (4.0-11.0)
[2020-07-21 20:02] LABS: ALBUMIN 3.9 g/dL (3.4-5.0); CALCIUM 8.7 mg/dL (8.5-10.1); POTASSIUM 3.5 mmol/L (3.5-5.1); TOTAL BILIRUBIN 0.4 mg/dL (0.2-1.0); TOTAL PROTEIN 7.9 g/dL (6.4-8.2)
[2020-07-21 20:23] LABS: URINE BILIRUBIN NEGATIVE (Negative); URINE BLOOD 3+ (Negative); URINE CLARITY CLEAR; URINE COLOR YELLOW; URINE GLUCOSE-RANDOM* 2+ (Negative); URINE KETONES NEGATIVE (Negative); URINE LEUKOCYTES-REFLEX NEGATIVE (Negative); URINE NITRITE-REFLEX NEGATIVE (Negative); URINE PROTEIN (DIPSTICK) 1+ (Negative); URINE SPECIFIC GRAVITY >= 1.030 (1.005-1.035); URINE UROBILINOGEN 0.2 E.U./dl (0.2-1.0)
[2020-07-21 20:38] LABS: INR 0.94; PROTIME 10.3 Seconds (10.5-12.1)
[2020-07-21 20:44] LABS: BACTERIA-REFLEX 1-9 Few /HPF (None Seen); CASTS None Seen /LPF (None Seen); CRYSTALS None Seen /LPF (None Seen); SQUAMOUS None Seen /LPF (0-3); URINE RBC 3-10 Few /HPF (NONE SEEN); URINE WBC-REFLEX 0-5 Rare /HPF (0-5)
[2020-07-21 21:54] VITALS: BP 157/85
--- NOTE | 2020-07-22 10:33 | EKG ---
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1940 Requested By: Yehuda Lubin Order Number: [id number] MD: Darwin Wang Measurements Intervals [place] Rate: 73 P: 38 PA: 208 QRS: 21 QRSD: 90 T: 30 QT: 422 QTc: 465 Interpretive Statements Sinus rhythm Compared to ECG 02/25/2020 11:19:44 Atrial premature complex(es) no longer present Myocardial infarct finding no longer present Electronically Signed On 07-22-2020 10:33:05 CDT by Darwin Wang [email or web address] <ELECTRONICALLY SIGNED> By: Darwin Wang MD, [facility] 07/22/20 1033 38 38 Darwin Wang MD, FACC /EPI
== END 2020-07-21 21:58 | disposition short-term general hospital (02) ==
LOC: ER 18:53
PROVIDERS: Emergency Medicine Emergency Medical Services
DX: I62.9 Nontraumatic intracranial hemorrhage, unspecified (principal); M25.511 Pain in right shoulder; I10 Essential (primary) hypertension; K21.9 Gastro-esophageal reflux disease without esophagitis; E78.5 Hyperlipidemia, unspecified; I48.91 Unspecified atrial fibrillation; Z88.2 Allergy status to sulfonamides; Z79.899 Other long term (current) drug therapy; Z79.01 Long term (current) use of anticoagulants

== ENCOUNTER → 2020-09-24 | Outpatient (CLI) | payer OTHER, BC | LOC: SJCVCIMAG 09:02 | PROVIDERS: ATTEND Internal Medicine | DX: I08.2 Rheumatic disorders of both aortic and tricuspid valves (principal); R94.31 Abnormal electrocardiogram [ECG] [EKG]; I49.9 Cardiac arrhythmia, unspecified; I11.9 Hypertensive heart disease without heart failure; E78.5 Hyperlipidemia, unspecified; I48.0 Paroxysmal atrial fibrillation; I62.9 Nontraumatic intracranial hemorrhage, unspecified; Z88.2 Allergy status to sulfonamides; Z79.899 Other long term (current) drug therapy ==